=== PATIENT | female | born 1970 | race Caucasian/White ===

== ENCOUNTER 2021-08-11 08:01 | Emergency (ER) | payer OTHER, SELFPAY ==
[2021-08-11 08:13] VITALS: BP 125/41; PULSE 72; RESP 16; TEMP 36.6; O2SAT 100
--- NOTE | 2021-08-11 08:30 | ED.URI ---
HPI - URI/Sore Throat General Stated Complaint: Sore Throat/Congestion/Headache Time Seen by Provider: 08/11/21 08:28 Source: patient and RN notes reviewed Mode of arrival: ambulatory Related Data Allergies Allergy/AdvReac Type Severity Reaction Status Date / Time No Known Allergies Allergy Unverified 05/03/14 13:58 Review of Systems Review of Systems: All systems reviewed & are unremarkable except as noted in HPI and below PMFSH Family History Family History Father Hypertension Grandparent Carcinoma of colon Family history of heart disease in male family member before age 55 Social History Social History Smoking status: Never smoker Alcohol intake: current Course Vital Signs Vital signs: Vital Signs Temperature 98 F 08/11/21 08:13 Pulse Rate 72 08/11/21 08:13 Respiratory Rate 16 08/11/21 08:13 Blood Pressure 125/41 L 08/11/21 08:13 Pulse Oximetry 100 08/11/21 08:13 Temperature 98 F 08/11/21 08:13 Pulse Rate 72 08/11/21 08:13 Respiratory Rate 16 08/11/21 08:13 Blood Pressure 125/41 L 08/11/21 08:13 Pulse Oximetry 100 08/11/21 08:13 MDM - URI/Sore Throat Differential Diagnosis Differential diagnosis: Likely upper respiratory infection, sinusitis, viral infection and influenza Discharge Plan Discharge Patient Disposition: Home, Self-Care Condition: Stable Instructions: Antibiotic Form Follow-up/Referrals: PHYSICIAN NOT ON STAFF,NONSTAFF [Primary Care Provider] -
--- NOTE | 2021-08-11 08:48 | ED.URI ---
HPI - URI/Sore Throat General Source: patient and RN notes reviewed Mode of arrival: ambulatory History of Present Illness HPI Narrative: This is a 51-year-old female who presented to urgent care with complaints of a sore throat, headache, body ache, fatigue, nausea vomiting, cough productive clear in color patient has been vaccinated she did use ibuprofen at home to relieve her symptoms. The patient denies SOB, CP, palpitation, extremity numbness, lightheadedness, dizziness, constipation, diarrhea, chills, or fever. Related Data Home Medications Medication Instructions Recorded Confirmed No Home Medications 08/11/21 08/11/21 Allergies Allergy/AdvReac Type Severity Reaction Status Date / Time No Known Allergies Allergy Unverified 05/03/14 13:58 Review of Systems Review of Systems: A 14 organ system Review of Systems was performed and pertinent positives included in the HPI, otherwise remaining ROS is negative. [facility] Family History Family History Father Hypertension Grandparent Carcinoma of colon Family history of heart disease in male family member before age 55 Social History Social History Smoking status: Never smoker Alcohol intake: current Exam Narrative: GENERAL: This is a well-nourished, well-developed patient, in no apparent distress. HEAD: normocephalic, atraumatic. EYES: PERRL. Sclera clear/white. Vision is grossly intact. EARS: External ears normal, auditory canals clear and without drainage, TMs normal without perforation. Hearing grossly intact. NOSE: External nose normal with no obvious nasal discharge, nares without redness, no rhinorrhea. THROAT: Mucous membranes moist, posterior pharynx edema with erythematous. NECK: Neck supple, non-tender without lymphadenopathy, masses or thyromegaly. CARDIOVASCULAR: Regular rate and rhythm without murmurs, gallops, or rubs. RESPIRATORY: Clear to auscultation. Breath sounds equal bilaterally. No wheezes, rales, or rhonchi. GASTROINTESTINAL: Abdomen soft, non-tender, nondistended. Bowel sounds are active. No hepato-splenomegaly, or palpable masses. No guarding. SKIN: warm, intact with no suspicious lesions or rash, good texture and turgor. NEURO: awake, alert, and oriented to person, place and time. There were no obvious focal neurologic abnormalities. Steady gait EXTREMITIES: Normal range of motion. No edema. No calf tenderness. Negative Homans sign bilaterally. BACK: Nontender without deformity or crepitance. No flank tenderness. Course Course Level of Care: Express Care Visit Vital Signs Vital signs: Vital Signs Temperature 98 F 08/11/21 08:13 Pulse Rate 72 08/11/21 08:13 Respiratory Rate 16 08/11/21 08:13 Blood Pressure 125/41 L 08/11/21 08:13 Pulse Oximetry 100 08/11/21 08:13 Temperature 98 F 08/11/21 08:13 Pulse Rate 72 08/11/21 08:13 Respiratory Rate 16 08/11/21 08:13 Blood Pressure 125/41 L 08/11/21 08:13 Pulse Oximetry 100 08/11/21 08:13 MDM - URI/Sore Throat MDM Narrative Medical decision making narrative: Patient will discharge home today with medication to treat symptoms, Flonase, Zofran, Tessalon Perles, and guaifenesin Differential Diagnosis Differential diagnosis: Likely upper respiratory infection, sinusitis, viral infection, influenza and pharyngitis Lab Data Attestation: I reviewed the patient's lab results. Labs: Influenza A Screen Negative Reference Range: Negative Influenza B Screen Negative Reference Range: Negative Strep Screen Presumptive Negative *(Reference Range: Negative)* Discharge Plan Discharge Clinical Impression: Viral infection Patient Disposition: Home, Self-Care Condition
[2021-08-12 22:11] LABS: SARS-CoV-2 RNA PCR Negative
== END 2021-08-11 09:11 | disposition home or self-care (01) ==
PROVIDERS: Nurse Practitioner; Emergency Provider Nurse Practitioner Family
DX: B34.9 Viral infection, unspecified (principal); Z20.822 Contact with and (suspected) exposure to COVID-19
CPT/HCPCS: 87081; 87804; 87880; 99203; C9803; G0463; U0003; U0005

== ENCOUNTER 2025-04-17 15:47 | Emergency (ER) | payer OTHER, SELFPAY ==
[2025-04-17 15:51] VITALS: BP 130/65; PULSE 72; RESP 18; TEMP 36.9; O2SAT 100
--- OUTSIDE RECORDS SUMMARY | 2025-04-17 16:09 | XMS_ITS | Clinical Summary ---
Author Organization [facility] Address [address] [place] [address] Care Team Providers Care Brusher Tender Name Role Phone Unavailable Primary Care Provider Unavailabl e Source Comments [facility],non-owned Affiliates and Associated Physician Practices is amultiple site organization consisting of ambulatory clinics and hospital sitesin [place], [place], [place] and [place]. This disclosure is being madepursuant to the Care Everywhere program and may not contain all information available regarding this patient. Last updated 18.[facility] Medications * Be aware that medications may not be up to date on this document. Alwaysverify current medications with the patient. 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 Gender Identity Not on file Sexual Orientation Not on file Last Filed Vital Signs Vital Sign Reading Time Taken Comments Blood Pressure 102/70 06/11/2017 11:04 AM BONER MEAT Pulse 74 06/11/2017 11:04 AM BONER MEAT Temperature 37.1 C (98.8 F) 06/11/2017 11:04 AM BONER MEAT Respiratory Rate - - Oxygen Saturation - - Inhaled Oxygen Concentration - - Weight 65.8 kg (145 lb) 06/11/2017 11:04 AM BONER MEAT Height 160 cm (5' 3) 06/11/2017 11:04 AM BONER MEAT Body Mass Index 25.69 06/11/2017 11:04 AM BONER MEAT Plan of Treatment Health Maintenance Due Date Last Done Comments COLOGUARD (AGES 45-75) - COL ON CA SCREENING 1970 COLON MONITORING 1970 COLONOSCOPY - COLON CA SCREENING 1970 CT COLONOGRAPHY - COLON CA SCREENING 1970 Colorectal Cancer Screening 1970 FIT - COLON CA SCREENING 1970 FLEX SIG - COLON CA SCREENING 1970 LIPID TESTING 1970 MAMMOGRAM 1970 HIV SCREENING 1985 HEPATITIS C SCREENING 01/05/1988 DTAP/TDAP/TD VACCINES (1 - Tdap) 1989 HEPATITIS B VACCINE (1 of 3 - 19+ 3-dose series) 1989 SCREENING FOR DIABETES 06/11/2017 PNEUMOCOCCAL VACCINE 50+ (1 of 1 - PCV) 01/10/2020 ZOSTER VACCINE (1 of 2) 01/10/2020 DEPRESSION SCREENING 08/06/2024 COVID-19 VACCINE (1 - 2023-2 5 season) 2025 INFLUENZA VACCINE (#1) 2025 HIB VACCINE Aged Out No longer eligi ble based on patient's age to complete this topic HPV VACCINE Aged Out No longer eligi ble based on patient's age to complete this topic MENINGOCOCCAL (Group B) VACC INE SHARED DECISION-MAKING Aged Out No longer eligibl e based on patient's age to complete this topic MENINGOCOCCAL GROUPS A/C/Y/W VACCINE Aged Out No longer eligible b ased on patient's age to complete this topic Insurance
--- OUTSIDE RECORDS SUMMARY | 2025-04-17 16:09 | XMS_ITS | Clinical Summary ---
Author Organization [facility] Address [address] [place] [address] Phone Care Team Providers Care Senior Inspector Name Role Phone Provider, None Primary Care Provider Unavailabl e Allergies No known active allergies Medications No known medications Social History Tobacco Use Types Packs/Day Years Used Date Smoking Tobacco: Never Smokeless Tobacco: Never Tobacco Cessation:Counseling Given: Not Answered Alcohol Use Standard Drinks/Week Comments Yes 0 (1 standard drink = 0.6 oz pur e alcohol) occasionally Comments Unknown Sex and Gender Information Value Date Recorded Sex Assigned at Female 06/07/2024 12:39 AM CDT Legal Sex Female 7:40 PM CDT Gender Identity Female 06/07/2024 12:39 AM CDT Sexual Orientation Not on file Last Filed Vital Signs Vital Sign Reading Time Taken Comments Blood Pressure 110/62 06/07/2024 12:33 AM CDT Pulse 73 06/07/2024 12:33 AM CDT Temperature 35.6 C (96 F) 06/07/2024 12:33 AM CDT Respiratory Rate 18 06/07/2024 12:33 AM CDT Oxygen Saturation 100% 06/07/2024 12:33 AM CDT Inhaled Oxygen Concentration - - Weight 61.2 kg (135 lb) 06/07/2024 12:33 AM CDT Height 160 cm (5' 3) 06/07/2024 12:33 AM CDT Body Mass Index 23.91 06/07/2024 12:33 AM CDT Plan of Treatment Health Maintenance Due Date Last Done Comments Hepatitis C Virus (HCV) Screening 1970 TdaP Immunization 1970 Hepatitis B Immunization (1 of 3 - 19+ 3-dose series) 1989 Pap Smear 1991 Cervical Cancer Screening (CCS) 01/10/2000 HPV/Cotest 01/10/2000 Cologuard 2015 Colonoscopy 2015 Colorectal Cancer Screening 2015 Immunochemical Fecal Occult Blood 2015 Pneumococcal Immunization (5 0+ years) (1 of 1 - PCV) 01/10/2020 Zoster Immunization (1 of 2) 01/10/2020 Mammogram 05/19/2022 05/19/2021 Influenza Immunization (#1) 2025 SARS-COV-2 Immunization (3 - season) 2025 03/14/2021, 02/14/2021 Respiratory Syncytial Virus (RSV) Immunization (Adult) (1 - 1-dose 75+ series) 2045 Human Papillomavirus (HPV) Immunization Aged Out No longer eligible b ased on patient's age to complete this topic Meningococcal Immunization (ACWY) Aged Out No longer eligible b ased on patient's age to complete this topic Rotavirus Immunization Aged Out No lo nger eligible based on patient's age to complete this topic Insurance Care Teams Senior Inspector Relationship Specialty Start Date End Date Provider, None CT PCP - General 06/07/24
--- OUTSIDE RECORDS SUMMARY | 2025-04-17 16:09 | XMS_ITS | Clinical Summary ---
Author Organization [facility] Address [address] [place] [address] Care Team Providers Care B2B Sales Representative Name Role Phone Oleg Rivero MD Primary Care Provider Allergies No known active allergies Medications ferrous sulfate 325 mg (65 mg of elemental iron) tabletIndicatio ns:Iron Deficiency Anemia Take 1 tablet (325 mg total) by mouth 2 (two) times a day with meals 180 tablet 1 1 Active docusate sodium (COLACE) 100 mg capsuleIndicati ons:constipatio n Take 1 capsule (100 mg total) by mouth 2 (two) times a day as needed for constipation 180 capsule 1 Active Active Problems Problem Noted Date Diagnosed Date Iron deficiency anemia 03/17/2021 Overview (03/17/2021): - noted on 03/26 - Noted results below - started on iron supplementation Lab Results Component Value Date HGB 10.2 (L) 03/16/2021 Lab Results Component Value Date IRON 25 (L) 03/16/2021 TIBC 453 (H) 03/16/2021 FERRITIN 14 (L) 03/16/2021 Annual visit for general chris lt medical examination without abnormal findings 03/16/2021 Assessment & Plan (03/16/2021 8:00 AM CDT): - Acute concerns: no significant acute issues on this visit - Mental health: no significant psychiatric/mental health conditions affecting her day to day functioning - Dental health: Discussed importance of regular tooth brushing, flossing, and dental visits. - Nutrition: Stressed importance of moderation in sodium/caffeine intake, saturated fat and cholesterol, caloric balance, sufficient intake of fresh fruits, vegetables - Exercise: Stressed the importance of regular exercise, goal would be - Immunizations: Age and sex appropriate immunizations reviewed and offered Lump of right breast 03/16/2021 Overview (05/19/2021): S/p diagnostic mammogram and US of right breast with impression as shown below IMPRESSION: 1. Benign 3.8 cm cyst in the right breast at the 12 o'clock position corresponds with the palpable area of concern. 2. No mammographic or sonographic evidence of malignancy. Screening mammogram in one year is recommended. I discussed these findings and impression with the patient at the time of the exam. Assessment & Plan (03/16/2021 8:41 AM CDT): - no prior breast cancer screening mammogram - right breast lump noted on physical exam - will do diagnostic mammogram and US Immunizations Immunization Administration Dates Next Due Influenza, Unspecified 05/06/2020(Deferred: Allegra ent Refused) Moderna SARS-CoV-2 Monovalen t Vaccination (12+ YRS) 03/14/2021,02/14/2021 Surgical History Surgery Date Site/Laterality Comments SECTION x3 KNEE SURGERY Right hx of patella fracture Medical History Medical History Date Comments Hx Other Medical (1992 , 1998, 2002) Family History Medical History Relation Name Comments No Known Problems Brother Anxiety disorder Daughter Dementia Father Hypertension Father Hypertension; Kidney disease Mother No Known Problems Son 1 No Known Problems Son 2 Relation Name Status Comments Brother Alive Daughter Alive Father Alive Mother Alive Son 1 Alive Son 2 Alive Social History Tobacco Use Types Packs/Day Years Used Date Smoking Tobacco: Never Smokeless Tobacco: Never Alcohol Use Standard Drinks/Week Comments No 0 (1 standard drink = 0.6 oz pur e alcohol) PHQ-2 Answer Date Recorded PHQ-2 Total Score (If total score is 3 or more points, staff should administer the PHQ-9) 0 03/16/2021 Comments No Sex and Gender Information Value Date Recorded Sex Assigned at Not on file Legal Sex 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 Gender Identity Not on file Sexual Orientation Not on file 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 Not on file Not on file Not o n file Obstetrics History Para Term AB IAB SAB Ectopic Multiple Livin g Live Births 3 3 3 Date Outcome GA Total Labor Labor/2nd/3rd Weight Sex Type Anes PTL Carol A1 A5 Name Clin Term Term Term Last Filed Vital Signs Vital Sign Reading Time Taken Comments Blood Pressure 110/60 03/16/2021 7:52 AM CDT Pulse 79 03/16/2021 7:52 AM CDT Temperature - - Respiratory Rate - - Oxygen Saturation 94% 03/16/2021 7:52 AM CDT Inhaled Oxygen Concentration - - Weight 62.3 kg (137 lb 6.4 oz) 03/16/2021 7:52 A M CDT Height 161.3 cm (5' 3.5) 05/19/2021 7:54 AM CDT Body Mass Index 23.95 03/16/2021 7:52 AM CDT Plan of Treatment Health Maintenance Due Date Last Done Comments Cervical Cancer Screening 1970 Colon Cancer Screening-Colonoscopy 1970 DTaP/Tdap/Td Vaccine (1 - Tdap) 1981 Hepatitis B Screening 01/10/1988 Zoster Vaccine (1 of 2) 01/10/2020 Depression Screening 03/16/2022 03/16/2021 Regular Well Visit/Exam 18-64 03/16/2022 03/16/2021 Breast Cancer Screening-Mammogram 05/19/2022 05/19/2021 Covid-19 Vaccine (3 - 2024-2 6 season) 2025 03/14/2021, 02/14/2021 Influenza Vaccine (#1) 2025 Hepatitis C Screening Completed 03/16/2021 Pneumococcal vaccine <65 Aged Out No longer eligible based on patient's age to complete this topic Procedures Procedure Name Priority Date/Time Associated Diagnosis Comments DIAGNOSTIC MAMMOGRAM BILATERAL W JJ Schedule Routine, Read Routine (OP Routine) 05/19/2021 8:01 AM CDT Lump of right breast HEPATITIS C ANTIBODY Routine 03/16/2021 8:50 AM CDT Need for hepatitis C screening test from Last 3 Months or Most Recently Relevant to Health Maintenance Results * Diagnostic Mammogram Bilateral W Jj (05/19/2021 8:01 AM CDT) Anatomical Region Laterality Modality Breast Bilateral Mammography 05/19/2021 8:50 AM CDT Impressions 05/19/2021 8:50 AM CDT 1. Benign 3.8 cm cyst in the right breast at the 12 o'clock position corresponds with the palpable area of concern. 2. No mammographic or sonographic evidence of malignancy. Screening mammogram in one year is recommended. I discussed these findings and impression with the patient at the time of the exam. BI-RADS: 2 - Benign. Electronically signed by: Dani Can M.D. Narrative 05/19/2021 8:50 AM CDT EXAMINATION: DIAGNOSTIC MAMMOGRAM BILATERAL W JJ, US BREAST RIGHT LIMITED ORDERING HEALTHCARE PROVIDER: OLEG RIVERO HISTORY: 51-year-old female presents for evaluation of an enlarging palpable lump in her right breast, which she initially noticed 5 months ago. COMPARISON: None available, baseline mammogram TECHNIQUE: CC and MLO views of the bilateral breasts were obtained with digital technique using breast tomosynthesis with C view. Computer aided detection was utilized. Limited grayscale and color Doppler ultrasound the right breast was performed. FINDINGS: Mammogram findings: The tissue of the bilateral breasts is heterogeneously dense, which may obscure small masses. A radiopaque marker has been placed on the superior right breast, denoting the palpable area of concern. Underlying the marker is a 3.8 cm oval mass with partially circumscribed, partially obscured margins. There are benign-appearing punctate calcifications within the vicinity of this mass. No other suspicious mammographic findings are seen within either breast. Ultrasound findings: Targeted ultrasound of the right breast palpable area of concern at the 12 o'clock position, 6 cm from nipple demonstrates a 3.8 x 1.7 x 3.5 cm oval circumscribed anechoic mass with thin internal septation, parallel orientation, increased through transmission, and no evidence of internal blood flow on color Doppler imaging. The ultrasound features of this mass are compatible with a benign minimally complicated cyst. us Oleg Rivero MD IMG MAMMO PROCEDURES Fi nal Result * Hepatitis C antibody (03/16/2021 8:50 AM CDT) Hep C Ab Nonreactive Nonreactive [facility] ([facility]) Comment: Interpretive Data Nonreactive: Antibodies to HCV not detected. Does NOT exclude the possibility of recent exposure to HCV. Equivocal: Equivocal for HCV antibodies. Supplemental molecular testing will be automatically performed to determine infection status in accordance with current CDC screening recommendations. Reactive: Positive for HCV antibodies. This may represent current or past HCV infection. Supplemental molecular testing will be automatically performed to determine current infection status in accordance with current CDC screening recommendations. Interpretive data was last revised on 2019. Testing performed by: [facility], [address] [place] [address]., [id number] Blood specimen (specimen) 03/16/2021 8:50 AM CDT 03/16/2021 2:52 PM CDT Oleg Rivero MD LAB MICROBIOLOGY - GENE [facility] ORDERABLES Final Result Performing Organization Address City/State/[facility] Co de Phone Number [facility] ([facility]) [address] [facility] Department [place] [address] from Last 3 Months or Most Recently Relevant to Health Maintenance Insurance [id number] CHOICE PLUS [facility] HMO/PPO Address: [address] [facility] [address] [place] [address] Care Teams B2B Sales Representative Relationship Specialty Start Date End Date Oleg Rivero MD PCP - General Family Medicine 03/16/21
--- NOTE | 2025-04-17 16:41 | ED_ITS ---
HPI - URI/Sore Throat General Chief Complaint: Upper Respiratory Infection Stated Complaint: sinus infection Source: patient and RN notes reviewed Mode of arrival: ambulatory Limitations: no limitations History of Present Illness HPI Narrative: 55 y/o female presented for c/o nasal congestion and sinus pressure. Onset one month. Denies sob, wheezing, cough, n/v/d/f/c. Taking multiple otc meds without improvement. MD elicited complaint: cough Related Data Allergies Allergy/AdvReac Type Severity Reaction Status Date / Time No Known Allergies Allergy Verified 04/17/25 16:02 Review of Systems Review of Systems: CONSTITUTIONAL: Endorses malaise, denies body aches, chills, sweats, fever EYES: Denies visual changes, redness, or discharge ENT: Reports rhinorrhea, congestion, sinus pain, denies otalgia, sore throat CARDIOVASCULAR: Denies chest pain, palpitations, edema RESPIRATORY: Denies dyspnea GASTROINTESTINAL: Denies abdominal pain, nausea, vomiting, diarrhea SKIN: Denies rash NEUROLOGIC: Denies headache [facility] Family History Family History Father Hypertension Grandparent Carcinoma of colon Family history of heart disease in male family member before age 55 Social History Social History Smoking status: Never smoker Alcohol intake: current Exam Narrative: GENERAL: mildly Ill-appearing, nontoxic no acute distress. EYES: conjunctivae clear ENT: Mucous membranes moist. nasal congestion. Tenderness to maxillary and frontal sinuses with palpation.TM pearly baez with dull light reflex bilaterally; no tragal tenderness. Oropharynx erythematous without lesions or exudate, no drooling, no hoarseness, no trismus, uvula midline. NECK: Supple. No lymphadenopathy CHEST: Clear to auscultation, breath sounds equal. No wheezing, rhonchi, rales, or stridor. No respiratory distress, speaks in full sentences. HEART: Regular rate and rhythm. No murmur heard. SKIN: Warm, dry, no rash. NEURO: Alert and oriented x3. PSYCH: Normal mood and affect Course Course Emergency Course: Patient is aware of diagnosis, understands and agrees to treatment plan. Anticipatory guidance given. Patient agrees to follow-up as directed and is aware of reasons to seek care at the emergency department. Portions of this record may have been created with voice recognition software Level of Care: Express Care Visit Vital Signs Vital signs: Vital Signs Temperature 98.5 F 04/17/25 15:51 Pulse Rate 72 04/17/25 15:51 Respiratory Rate 18 04/17/25 15:51 Blood Pressure 130/65 04/17/25 15:51 Pulse Oximetry 100 04/17/25 15:51 Oxygen Delivery Room Air 04/17/25 15:51 Temperature 98.5 F 04/17/25 15:51 Pulse Rate 72 04/17/25 15:51 Respiratory Rate 18 04/17/25 15:51 Blood Pressure 130/65 04/17/25 15:51 Pulse Oximetry 100 04/17/25 15:51 Oxygen Delivery Room Air 04/17/25 15:51 reviewed MDM - URI/Sore Throat MDM Narrative Medical decision making narrative: Discussed physical exam findings c/w sinusitis. Reviewed RX. Advised supportive measures and signs/symptoms to go to the ER. Pt is appropriate for outpt treatment and f/u. Differential Diagnosis Differential diagnosis: Likely upper respiratory infection, sinusitis and viral infection Discharge Plan Discharge Clinical Impression: Sinusitis Patient Disposition: Home Condition: Stable Instructions: Antibiotic Form, Rhinosinusitis (ED) Additional Instructions: Take antibiotic as directed Recommendations: Flonase spray and Zyrtec (or Claritin/Ginny) Tylenol 1000mg every 8 hours as needed for pain Symptomatic treatment includes: rest, fluids, and increase humidity of the air at home. Follow up with your primary care provider in 1 week. Go to the ER for worsening symptoms or concerns. Patient Language: New Zealander Prescriptions: New amoxicillin-pot clavulanate 875-125 mg tablet 1 tablet PO Q12H 7 Days Qty: 14 0RF No Action loratadine [Claritin] 10 mg tablet 10 mg PO DAILY PRN (Reason: allergy symptoms) Qty: 10 0RF Follow-up/Referrals: Roland,Keanu Stallworth MD [Primary Care Provider, Unknown] Time of Disposition: 16:45
== END 2025-04-17 16:49 | disposition home or self-care (01) ==
PROVIDERS: Emergency Provider Nurse Practitioner Family; PCP Family Medicine
DX: J32.9 Chronic sinusitis, unspecified (principal)
CPT/HCPCS: 99213; G0463